=== PATIENT | male | born 1960 | race Caucasian/White ===

== ENCOUNTER → 2017-01-23 | Outpatient (CLI) | payer OTHER ==
[~2017-01-23] MED LIST: HYDROCODON-ACE1 EAC4 PO; TYLENOL ARTHRI650 MG PO
== END | disposition disaster alternative care site (69) ==
LOC: GOPD 01-21
PROC: 0HB4XZX Excision of Neck Skin, External Approach, Diagnostic (ICD-10-PCS; principal; 2017-01-23)
DX: C76.0 Malignant neoplasm of head, face and neck (principal); R22.1 Localized swelling, mass and lump, neck

== ENCOUNTER → 2017-04-04 | Day surgery (SDC) | payer OTHER ==
[~2017-04-04] VITALS: Ht 182.9 cm; Wt 79.6 kg
--- NOTE | ~2017-04-04 | OR ---
PATIENT'S NAME: RICHARD NG [facility] AGE: 57 Y [address] ROOM: [place] [id number] [place] [facility] [place]: 04/04/2017 OR/Procedure Report DISCHARGE DATE: FAMILY PHYSICIAN: MARIA TERESA PERALTA MD ATTENDING PHYSICIAN: Jean De La Rosa SURGEON: Jean De La Rosa MD RELIEF MANAGER: DATE OF PROCEDURE: 04/04/2017 PREOPERATIVE DIAGNOSIS: Head and neck cancer with need for chemo and radiation therapy. POSTOPERATIVE DIAGNOSIS: Head and neck cancer with need for chemo and radiation therapy. PROCEDURES PERFORMED: 1. Left subclavian port. 2. EGD with PEG. FINDINGS: The PEG appeared to be in good position at 3 cm of the skin. The port was accessed easily. It aspirated and flushed easily at the conclusion of the case. ESTIMATED BLOOD LOSS: Less than 20 mL. COMPLICATIONS: None. INDICATIONS: The patient is a 57-year-old male, who had head and neck cancer. He is in need of chemotherapy and radiation therapy. I was asked to place a port as well as a PEG tube for enteral access after radiation had begun. We discussed the risks, benefits, and alternatives with the patient and he wished to proceed. DESCRIPTION OF PROCEDURE: The patient was taken into the Operating Room. He was supine. He was given IV sedation. His chest and neck were cleansed with ChloraPrep and sterilely draped. Local anesthetic was infiltrated beneath the left clavicle. Access needle was inserted on the first pass, and the needle wire access was obtained. Fluoroscopy confirmed the wire to be in an appropriate position. Following this, further local anesthetic was infiltrated in the left chest wall. A transverse incision was created encompassing the wire, carried into the subcutaneous tissues, and down to the chest wall using electrocautery. A subcutaneous pocket was then created. The sheath and dilator were then inserted over the wire. The wire and dilator were then removed. The catheter PATIENT'S NAME: RICHARD NG [facility] AGE: 57 Y [address] ROOM: [place] [id number] [place] [facility] [place]: 04/04/2017 OR/Procedure Report DISCHARGE DATE: FAMILY PHYSICIAN: MARIA TERESA PERALTA MD ATTENDING PHYSICIAN: Jean De La Rosa was inserted through the sheath. The sheath was removed. The tip of the catheter was positioned near the atriocaval junction using fluoroscopy. A locking hub was placed on the catheter. The catheter was cut to its appropriate length. The port was then placed on the catheter and the locking hub was secured. The port was placed in the subcutaneous pocket and secured to the chest wall using 2-0 PDS suture. The operative field was inspected. It appeared hemostatic. The deep dermal layers were approximated with 3-0 Vicryl suture and skin closure with 4-0 Monocryl suture. The port was accessed, it aspirated blood, and it was flushed with heparinized saline. The port was again inspected. The tip appeared to lie in good position using fluoroscopy, and there were no kinks in the catheter. A sterile dressing was placed. He tolerated this well. Following this, the EGD was performed. A flexible endoscope was inserted in the esophageal lumen after a bite block was placed. This was advanced through the esophagus. 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 Again, we advanced into the esophagus past the GE junction and into the gastric lumen. In the gastric lumen, we insufflated this. We identified an area on the abdominal wall and moved in a one-to-one motion. This area was selected for PEG tube placement. Local anesthetic was infiltrated after this area was cleansed with ChloraPrep. An incision was created, followed by insertion of the access needle and introducer sheath. The access needle was removed. The wire was then placed through the introducer sheath. The snare was then placed through the flexible endoscope. The wire was then snared. The wire, snare, and flexible endoscope were then all brought out through the mouth. The PEG tube was then placed over the wire. The wire was snared. The PEG tube and flexible endoscope were all pulled back into the gastric lumen. The wire was released. The rubber bumper was placed on the PEG tube. It appeared to be in good position at approximately 3 cm of the skin. The PEG tube was placed to gravity. The flexible endoscope was withdrawn. The patient tolerated this well. MD PITER IVY/karla /[id number] d: 04/04/17 2347 t: 04/18/17 0853, OPERATIVE SUMMARY
== END | disposition disaster alternative care site (69) ==
LOC: GPOC 04-02 13:00 → GSDC 09:49
PROC: 05H633Z Insertion of Infusion Device into Left Subclavian Vein, Percutaneous Approach (ICD-10-PCS; principal; 2017-04-04)
PROC: B517ZZA Fluoroscopy of Left Subclavian Vein, Guidance (ICD-10-PCS; 2017-04-04)
PROC: 0DH63UZ Insertion of Feeding Device into Stomach, Percutaneous Approach (ICD-10-PCS; 2017-04-04)
DX: C76.0 Malignant neoplasm of head, face and neck (principal); C01 Malignant neoplasm of base of tongue; Z87.891 Personal history of nicotine dependence; Z98.890 Other specified postprocedural states; Z88.0 Allergy status to penicillin
CPT/HCPCS: C1788; J0690; J1642; J2001; J3010; J7120

== ENCOUNTER → 2017-05-06 | Outpatient (CLI) | payer OTHER | END | disposition disaster alternative care site (69) | LOC: GRAD 12:43 | DX: C76.0 Malignant neoplasm of head, face and neck (principal); R13.10 Dysphagia, unspecified; C01 Malignant neoplasm of base of tongue ==